=== PATIENT | male | born 1970 | race African-American/Black ===

== ENCOUNTER → 2019-03-07 | Outpatient (CLI) | payer MEDICARE, MEDICAID | END | disposition home or self-care (01) | LOC: NM 07:49 | PROVIDERS: ATTEND Internal Medicine Nephrology | DX: E21.3 Hyperparathyroidism, unspecified (principal) | CPT/HCPCS: 78070; A9500 ==

== ENCOUNTER → 2022-06-30 | Outpatient (CLI) | payer MEDICARE, MEDICAID | END | disposition home or self-care (01) | LOC: NM 07:48 | PROVIDERS: ATTEND Internal Medicine Nephrology | DX: E21.3 Hyperparathyroidism, unspecified (principal) | CPT/HCPCS: 78070; A9500 ==

== ENCOUNTER 2023-06-04 09:22 | Day surgery (SDC) | payer MEDICARE, MEDICAID ==
[2023-06-04] VITALS (9 sets, daily range): BP systolic 134–149; BP diastolic 76–84; PULSE 65–71; RESP 16
[~2023-06-04] VITALS: Ht 185.4 cm; Wt 108.9 kg
[~2023-06-04 09:22] MED LIST: FENTANYL CITRATE/PF 50MCG/ML 2ML VIAL ONE; LIDOCAINE HCL 1% 10 MG/ML 10ML VIAL ONE
[2023-06-04] MEDS: FENTANYL CITRATE/PF 50MCG/ML 2ML VIAL IV ONE (10:05)
[2023-06-04 12:41] LABS: HEMATOCRIT 42.9 % (42.0-52.0); HEMOGLOBIN 13.8 g/dL (14.0-18.0)
== END 2023-06-04 13:10 | disposition home or self-care (01) ==
LOC: RAD 09:22
PROVIDERS: ATTEND Internal Medicine Nephrology
DX: R80.8 Other proteinuria (principal); I12.9 Hypertensive chronic kidney disease with stage 1 through stage 4 chronic kidney disease, or unspecified chronic kidney disease; N18.4 Chronic kidney disease, stage 4 (severe); M10.9 Gout, unspecified; E21.3 Hyperparathyroidism, unspecified; Z79.899 Other long term (current) drug therapy; Z98.890 Other specified postprocedural states
CPT/HCPCS: 85014; 85018; 36415; 50200; 76942; 88346; 88348; 88305; J3010; J3490; Z7610 ×4; 99152; 99153; G0500

== ENCOUNTER → 2023-08-31 | Outpatient (CLI) | payer MEDICARE, MEDICAID | END | disposition home or self-care (01) | LOC: CARD 13:42 | PROVIDERS: ATTEND Internal Medicine | DX: I07.1 Rheumatic tricuspid insufficiency (principal); I1A.0 Resistant hypertension; R07.9 Chest pain, unspecified | CPT/HCPCS: 93306 ==

== ENCOUNTER → 2023-11-01 | Outpatient (CLI) | payer MEDICARE, MEDICAID ==
[~2023-11-01] MED LIST changes: -FENTANYL CITRATE/PF 50MCG/ML 2ML VIAL ONE; -LIDOCAINE HCL 1% 10 MG/ML 10ML VIAL ONE; +REGADENOSON 0.4 MG/5 ML IV ONE
== END | disposition home or self-care (01) ==
LOC: NM 08:29
PROVIDERS: ATTEND Internal Medicine
DX: I50.20 Unspecified systolic (congestive) heart failure (principal); I51.89 Other ill-defined heart diseases
CPT/HCPCS: 78452; 93017; J2785; A9500